=== PATIENT | female | born 1965 | race Caucasian/White ===

== ENCOUNTER → 2023-11-24 16:51 | Outpatient (REF) | payer BC, SELFPAY | LOC: RAD 16:51 | PROVIDERS: ATTENDING PHYSICIAN Physician Assistant; FAMILY PHYSICIAN Nurse Practitioner | DX: R05.3 Chronic cough (principal) | CPT/HCPCS: 71046 ==

== ENCOUNTER → 2024-02-05 07:54 | Outpatient (REF) | payer BC, SELFPAY | LOC: WDC 07:54 | PROVIDERS: ATTENDING PHYSICIAN Nurse Practitioner; REFERRING PHYSICIAN Obstetrics & Gynecology | DX: Z12.31 Encounter for screening mammogram for malignant neoplasm of breast (principal); Z00.01 Encounter for general adult medical examination with abnormal findings; Z78.0 Asymptomatic menopausal state | CPT/HCPCS: 77063; 77067; 77080 ==

== ENCOUNTER → 2024-03-01 14:47 | Outpatient (REF) | payer BC, SELFPAY | LOC: HWRAD 14:47 | PROVIDERS: ATTENDING PHYSICIAN Obstetrics & Gynecology; FAMILY PHYSICIAN Nurse Practitioner | DX: R10.32 Left lower quadrant pain (principal); N84.0 Polyp of corpus uteri | CPT/HCPCS: 76830; 76856 ==

== ENCOUNTER → 2024-03-08 08:30 | Outpatient (REF) | payer BC, SELFPAY | LOC: HWRAD 08:30 | PROVIDERS: ATTENDING PHYSICIAN Nurse Practitioner | DX: R10.11 Right upper quadrant pain (principal); R10.31 Right lower quadrant pain | CPT/HCPCS: 74177; Q9967 ==

== ENCOUNTER → 2024-03-18 16:58 | Outpatient (REF) | payer BC, SELFPAY | LOC: RAD 16:58 | PROVIDERS: ATTENDING PHYSICIAN Family Medicine; FAMILY PHYSICIAN Nurse Practitioner | DX: R10.31 Right lower quadrant pain (principal) | CPT/HCPCS: 74018 ==

== ENCOUNTER 2024-09-17 09:19 | Emergency (ER) | payer BC, SELFPAY ==
[2024-09-17 09:20] VITALS: BP 109/67
--- NOTE | 2024-09-17 10:44 | ED.GENMED ---
History of Present Illness
General
Chief Complaint: Chest Pain
Source: patient
Time Seen by Provider: 09/17/24 10:12
History of Present Illness
History of Present Illness:
58yoF with a history of hyperlipidemia, osteoporosis, and GERD presenting with her for evaluation of chest pain. Patient woke up this morning around 0430 with central chest discomfort. She reports a sharp, severe pain in her sternal
region. The pain is worse with movement and breathing. She denies any trauma to the area. The pain started to radiate to her back a few hours later. She reports nausea but denies any fevers. She also has been having a mild cough for the past
1.5 weeks. Of note, she received her first Reclast infusion yesterday afternoon.
Past History
Past History
ED Past Medical History: Other (Ovarian cyst, Uterine fibroid) and Other (Left shoulder tendinitis)
ED Past Surgical History: Gynecological (D X C uterine ablation 08/07/2017), Orthopedic (Left shoulder arthroscopy November 2016) and Other (Myomectomy)
Social History
Tobacco: Non-smoker
Alcohol: Occasional
Drug: None
Personal:
Living: with family
Family History
Family History: Negative Early CAD or Sudden
Phy Exam
General Physical Exam
General Presentation: well appearing and no apparent distress
General age: appears stated age
General Skin: warm and dry
General Habitus: normal
General Mental: alert
ENT Exam
ENT Exam: normocephalic
Cardiovascular Exam
Cardiovascular Exam: regular rate/rhythm and no murmur
Pulmonary Exam
Pulmonary Exam: lungs clear, no respiratory distress, no rales, no crackles, no rhonchi and other (+Chest wall tenderness. No skin changes.)
Gastrointestinal Exam
Gastrointestinal Exam: non tender, soft and non distended
Neurological Exam
Neurological Exam: alert
Sandra Coma Scale
Eye Opening: Spontaneous
Verbal Response: Oriented
Motor Response: Obeys Commands
GCS Total Score: 15
Skin Exam
Skin Exam: normal color and warm/dry
Psychiatric Exam
Psychiatric Exam: normal mood/affect
Scores
Heart Score for Chest Pain Patients
STEMI patient?: No
History: Slightly or Non-Suspicious
ECG: Normal
Age: >45 - <65 years
Risk Factors: 1 or 2 Risk Factors
Troponin: </= Normal Limit
Heart Score for Chest Pain Patients: 2
Heart Score Risk: 2.5% MACE over next 6 weeks
Course
Orders/Labs/Results
Orders:
Orders
09/17/24 09:20
Electrocardiogram (*1) Urgent
Reason for Study: Chest Pain
09/17/24 09:21
EKG- Treatment ONCE
09/17/24 10:21
Cardiac Monitoring- Treatment ONCE
09/17/24 10:35
Oxycodone/Acetaminophen [Percocet 5/325] 1 tablet PO NOW STA
09/17/24 10:51
Complete Blood Count/With Diff Urgent
Comprehensive Metabolic Panel Urgent
D-Dimer Urgent
Troponin I Urgent
09/17/24 11:23
Acetaminophen [Tylenol] 1,000 mg PO NOW STA
09/17/24 11:34
CR Chest - 2 Views Urgent
Comment:
Reason For Exam: CP
09/17/24 12:36
Ketorolac [Toradol] 15 mg IV NOW STA
09/17/24 13:00
COVID-19 Antigen Urgent
Source: Nasal Swab
Influenza A+B Rapid Molecular Urgent
PRIYANKA Source: Nasal Swab
Specimen Description:
Abnormal Lab Results
09/17/24
10:51
WBC 12.2 H 10^3/uL
(4.8-10.8)
Absolute Neuts (auto) 11.6 H 10^3/uL
(1.4-6.5)
Absolute Lymphs (auto) 0.3 L 10^3/uL
(1.2-3.4)
Neutrophils % 95.1 H %
(42.2-75.2)
Lymphocytes % 2.2 L %
(20.5-51.1)
Glucose 101 H mg/dl
(70-99)
09/17/24 10:51
09/17/24 10:51
Vital Signs
Initial and Last Documented VS:
Initial Vital Signs
Temp Pulse Resp BP Pulse Ox
99.1 F 94 16 109/67 95
09/17/24 09:20 09/17/24 09:20 09/17/24 09:20 09/17/24 09:20 09/17/24 09:20
Last Documented Vital Signs
Temp Pulse Resp BP Pulse Ox
99.5 F 95 18 123/71 95
09/17/24 11:29 09/17/24 14:00 09/17/24 14:00 09/17/24 12:00 09/17/24 14:00
MDM/Problems Addressed
Differential Diagnosis Includes:
58yoF here with central chest discomfort that began this morning. Worse with movement and breathing. Received Reclast infusion yesterday for the first time. She is afebrile and hemodynamically stable. She is non-toxic appearing. There is chest wall
tenderness present on exam. Differential diagnosis includes but is not limited to: costochondritis, pleurisy, pericarditis, side effect of Reclast, ACS, PE
Initial ED plan: Check cardiac labs, D-dimer, EKG, and CXR. Tylenol for pain.
*EKG
Interpreted by ED Provider?: Yes
EKG Intrepretation Date: 09/17/24
Heart Rate: 87
Rate: normal
Rhythm: sinus
[place]: normal axis
Interval: normal interval
QRS Pattern: normal QRS
Ischemia: no ischemia
*Critical Care Note
Total Time (30-74mins, 75-104mins- exclusive of procedures): Not Applicable
Update Note
Update Note:
EKG shows NSR without ischemic changes and troponin WNL. D-dimer normal making PE very unlikely. CXR is negative for acute findings. Patient ultimately received IV Toradol with improvement in her pain. Suspect musculoskeletal pain given that it is
reproducible on exam and improving with NSAIDs. This is possibly a side effect of her Reclast infusion yesterday as this can cause bone/muscle pain. She had some chills during ED stay and COVID/flu testing added which is negative. Flu-like symptoms
are also a side effect of the Reclast infusion. No indication for hospitalization. Supportive care discussed. Advised close f/u with PCP and ED return precautions discussed. She expressed understanding and is in agreement with plan. She was
discharged in stable condition.
ED Attending Note
-
Portions of this chart may have been created with voice recognition software.� Occasional wrong word or��sound alike� substitutions may have occurred due to the inherent limitations of voice recognition software.
Discharge Plan
Departure
Patient Disposition: Home (Routine Discharge)
Date of Disposition: 09/17/24
Time of Disposition: 14:02
Patient with high blood pressure during this ER visit?: No
Discharge Problem:
Chest pain
Instructions: Chest Pain PCP Follow Up
Prescriptions:
No Action
ibuprofen 800 MG tablet
800 mg PO PRN PRN (Reason: pain)
multivitamin [One Daily Multivitamin] 1 EACH tablet
1 ea PO DAILY
docosahexaenoic acid-epa 1 CAP capsule
1 cap PO DAILY
omeprazole magnesium [Prilosec OTC] 20 MG tablet,delayed release (DR/EC)
20 mg PO DAILY
ketorolac 10 MG tablet
10 mg PO Q6HPRN PRN (Reason: pain) Qty: 20 0RF
pantoprazole 40 mg tablet,delayed release (DR/EC)
40 mg PO BID 14 Days Qty: 28 0RF
sucralfate [Carafate] 1 gram tablet
1 g PO AC Qty: 45 0RF
Rx Instructions:
Mix in 10mL water before consuming
Referrals:
Celso Peter MD [Family Provider] -
Activity Restrictions/Additional Instructions:
Apply heat to affected area. Take ibuprofen 400-600mg every 6 hours as needed for pain.
Please follow-up with your family doctor on Thursday. Return to the ER with any new or worsening symptoms.
Interventions
Interventions:
*Risk Screen - Suicide Last Done: 09/17/24 09:24
*General Assessment Last Done: 09/17/24 11:30
*Neglect/Abuse Screening Last Done: 09/17/24 09:24
ED- Fall Risk Assessment Last Done: 09/17/24 11:36
*ED COVID-19 Vaccine History Last Done: 09/17/24 11:30
*Nursing Disposition Last Done: 09/17/24 14:19
ED- Cardiac Assessment Last Done: 09/17/24 11:36
Discharge Date and Time
Discharge Date/Time: 09/17/24 14:20
Print Language: GIBRALTARIAN
[2024-09-17 11:01] LABS: % Basophils 0.1 % (0-2); % Immature Granulocytes 0.3 % (0-0.5); % Lymphocytes 2.2 % (20.5-51.1); % Monocytes 2.3 % (1.7-9.3); % Neutrophils 95.1 % (42.2-75.2); Absolute Lymphocytes 0.3 10^3/uL (1.2-3.4); Absolute Monocytes 0.3 10^3/uL (0.1-0.6); Absolute Neutrophils 11.6 10^3/uL (1.4-6.5); Hematocrit 37.6 % (37.0-47.0); Hemoglobin 12.5 g/dL (12.0-16.0); Mean Corp Hgb Conc. 33.2 g/dL (33.0-37.0); Mean Corpuscular Hgb 28.3 pg (27.0-31.0); Mean Corpuscular Volume 85.3 fL (81.0-99.0); Mean Platelet Volume 9.6 fL (7.4-10.4); Nucleated Red Blood Cells % 0 %; Platelet Count 233 10^3/uL (130-400); Red Blood Cell Count 4.41 10^6/uL (4.20-5.40); Red Cell Dist. Width 13.5 % (11.5-14.5); White Blood Cell Count 12.2 10^3/uL (4.8-10.8)
[2024-09-17 11:14] LABS: ALT (SGPT) 26 U/L (0-35); AST (SGOT) 24 U/L (14-36); Albumin 4.5 g/dl (3.5-5.0); Alkaline Phosphatase 66 U/L (38-126); Blood Urea Nitrogen 15 mg/dl (7-17); Calcium 8.8 mg/dl (8.4-10.2); Carbon Dioxide 26 mmol/L (22-30); Chloride 104 mmol/L (98-107); Glucose 101 mg/dl (70-99); Potassium 4.4 mmol/L (3.5-5.1); Sodium 141 mmol/L (135-145); Total Bilirubin 0.7 mg/dl (0.2-1.3); eGFR > 60.00
[2024-09-17] MEDS: TYLENOL 1000 MG PO (11:27)
[2024-09-17 11:30] VITALS: BP 140/83
[2024-09-17 11:34] LABS: D-Dimer 0.38 ug/mlFEU (0.00-0.50)
[2024-09-17 12:00] VITALS: BP 123/71
[2024-09-17 12:05] LABS: Troponin I < 0.012 ng/ml
[2024-09-17] MEDS: TORADOL 15 MG IV (12:54)
[2024-09-17 13:35] LABS: COVID-19 Antigen Negative (Negative)
== END 2024-09-17 14:20 | disposition home or self-care (01) ==
LOC: EMR 09:19
PROVIDERS: Physician Assistant; EMERGENCY PHYSICIAN Emergency Medicine; FAMILY PHYSICIAN Family Medicine
DX: R07.9 Chest pain, unspecified (principal); E78.5 Hyperlipidemia, unspecified; K21.9 Gastro-esophageal reflux disease without esophagitis; M81.0 Age-related osteoporosis without current pathological fracture
CPT/HCPCS: 99285; 71046; 80053; 84484; 85025; 85379; 87502; 87811; 93005

== ENCOUNTER → 2025-07-18 18:01 | Outpatient (REF) | payer BC, SELFPAY | LOC: WDC 18:01 | PROVIDERS: ATTENDING PHYSICIAN Obstetrics & Gynecology; FAMILY PHYSICIAN Nurse Practitioner | DX: Z12.31 Encounter for screening mammogram for malignant neoplasm of breast (principal) | CPT/HCPCS: 77063; 77067 ==